=== PATIENT | female | born 1935 | race Asian ===

== ENCOUNTER 2019-10-13 19:45 | Inpatient (IN) | payer MEDICARE, OTHER ==
[~2019-10-13] VITALS: Ht 149.9 cm; Wt 47.3 kg
[2019-10-13] MEDS ORDERED: METF-960 PO (20:09)
[2019-10-13] MEDS ORDERED: QUET25TA PO (20:09)
[2019-10-13] MEDS ORDERED: AMLO2.5T4 PO (20:09)
[2019-10-13] MEDS ORDERED: LISI-662 PO (20:09)
[2019-10-13] MEDS ORDERED: 0.9% SODIUM CHLORIDE 10 ML SYRINGE IVP PRN (20:15)
[2019-10-13 20:46] LABS: HEMATOCRIT 33.1 % (36-46); HEMOGLOBIN 10.8 g/dL (12.0-16.0); MEAN CORPUSCULAR HEMOGLOBIN 30.7 pg (26.0-34.0); MEAN CORPUSCULAR HGB CONC 32.6 G/dL (31.0-37.0); MEAN CORPUSCULAR VOLUME 94 fL (80-100); PLATELET COUNT (AUTO) 125 K/uL (150-450); RED BLOOD CELL COUNT(AUTO) 3.51 MIL/uL (4.00-5.20); RED CELL DISTRIBUTION WIDTH 13.7 % (11.5-14.5)
[2019-10-13] MEDS ORDERED: SODIUM CHLORIDE 0.9% 1,350 ML IV ONE (20:50)
[2019-10-13 21:03] LABS: PROTHROMBIN TIME 10.5 SEC (9.4-11.6)
[2019-10-13 21:09] LABS: LACTIC ACID 4.5 mmol/L (0.4-2.0)
[2019-10-13 21:20] LABS: B-TYPE NATRIURETIC PEPTIDE 300 pg/mL (0-100)
[2019-10-13 21:22] LABS: ALANINE AMINOTRANSFERASE 22 U/L (12-78); ALBUMIN 2.6 g/dL (3.4-5.0); ALKALINE PHOSPHATASE 58 U/L (46-116); ANION GAP 8 mmol/L (8-16); ASPARTATE AMINOTRANSFERASE 19 U/L (15-37); BILIRUBIN,TOTAL 0.4 mg/dL (0.1-1.0); CALCIUM, TOTAL 9.5 mg/dL (8.8-10.5); CARBON DIOXIDE 26 mmol/L (22-29); CHLORIDE 96 mmol/L (98-107); CREATINE KINASE, TOTAL ONLY 556 U/L (26-192); CREATININE 1.07 mg/dL (0.60-1.30); GLOMERULAR FILTR. RATE CALC 49 mL/min (>60); POTASSIUM 3.3 mmol/L (3.5-5.1); SODIUM SERUM 130 mmol/L (136-145); TOTAL PROTEIN, SERUM 7.5 g/dL (6.4-8.2); UREA NITROGEN, BLOOD 27 mg/dL (7-18)
[2019-10-13 21:23] LABS: GLUCOSE,RANDOM 407 mg/dL (70-110)
[2019-10-13 21:38] LABS: APPEARANCE,URINE CLOUDY (CLEAR); BILIRUBIN,URINE NEGATIVE (NEGATIVE); GLUCOSE, URINE (UA) >=1000 mg/dL (NEGATIVE); KETONES,URINE NEGATIVE (NEGATIVE); LEUKOCYTE ESTERASE ,URINE SMALL (NEGATIVE); NITRATE,URINE POSITIVE (NEGATIVE); OCCULT BLOOD,URINE MODERATE (NEGATIVE); PROTEIN,URINE POS 1+ (NEGATIVE)
[2019-10-13] MEDS ORDERED: ACETAMINOPHEN 650 MG/ISO-OSM 65 ML IV ONE (21:45)
[2019-10-13 21:48] LABS: BACTERIA,URINE Many /HPF (None Seen)
[2019-10-13 21:51] LABS: SQUAMOUS EPITHELIAL CELL,UR Few /LPF (None Seen)
[2019-10-13 21:55] LABS: BAND NEUTROPHILS % (MANUAL) 34 % (0-5); LYMPHOCYTES % (MANUAL) 18 % (22-44); MONOCYTES % (MANUAL) 7 % (2-9); SEGMENTED NEUTROPHILS % 41 % (40-70)
[2019-10-13] MEDS ORDERED: ACETAMINOPHEN 325 MG TABLET PO PRN (22:30)
[2019-10-13] MEDS ORDERED: DEXTROSE 50%-WATER 25 GM/50 ML SYRINGE IVP PRN (22:30)
[2019-10-13] MEDS ORDERED: MAGNESIUM HYDROXIDE SUSPENSION 30 ML UDCUP PO PRN (22:30)
[2019-10-13] MEDS ORDERED: IPRATROPIUM BROMIDE 0.5 MG/2.5 ML NEB SOLUTION NEB PRN (22:30)
[2019-10-13] MEDS ORDERED: MORPHINE SULFATE 2 MG/ML SYRINGE IVP PRN (22:30)
[2019-10-13] MEDS ORDERED: ONDANSETRON HCL 4 MG/2 ML VIAL IVP PRN (22:30)
[2019-10-13] MEDS ORDERED: HYDROCODONE/ACETAMINOPHEN 5-325 MG TABLET PO PRN (22:30)
[2019-10-13] MEDS ORDERED: ALBUTEROL SULFATE 2.5 MG/0.5 ML NEB SOLUTION NEB PRN (22:30)
[2019-10-13] MEDS ORDERED: ZOLPIDEM TARTRATE 5 MG TABLET PO PRN (22:30)
[2019-10-13] MEDS ORDERED: BISACODYL 10 MG RECTAL RECTAL SUPPOSITORY PR PRN (22:30)
[2019-10-13 22:37] LABS: INFLUENZA TYPE A NEGATIVE FOR TYPE A (NEGATIVE); INFLUENZA TYPE B NEGATIVE FOR TYPE B (NEGATIVE)
[2019-10-13] MEDS ORDERED: AZITHROMYCIN 500 MG/NS 250 ML IV SCH (23:00)
[2019-10-13 23:20] VITALS: BP 105/53
[2019-10-14] MEDS ORDERED: CefTRIAXone 1 GM/DEXTROSE 50 ML IV SCH
[2019-10-14] MEDS: HEPARIN SODIUM,PORCINE 5,000 UNITS/ML VIAL SQ SCH ×3 (00:29→21:18)
[2019-10-14 04:14] VITALS: BP 121/67
[2019-10-14 07:08] LABS: GLUCOMETER DEV NAME(LOC) 5S.1; GLUCOSE,POINT OF CARE 122 MG/DL (70-110)
[2019-10-14 07:16] VITALS: BP 116/74
[2019-10-14 07:24] LABS: HEMATOCRIT 32.6 % (36-46); HEMOGLOBIN 10.6 g/dL (12.0-16.0); MEAN CORPUSCULAR HEMOGLOBIN 30.5 pg (26.0-34.0); MEAN CORPUSCULAR HGB CONC 32.6 G/dL (31.0-37.0); MEAN CORPUSCULAR VOLUME 94 fL (80-100); PLATELET COUNT (AUTO) 138 K/uL (150-450); RED BLOOD CELL COUNT(AUTO) 3.48 MIL/uL (4.00-5.20); RED CELL DISTRIBUTION WIDTH 13.9 % (11.5-14.5)
[2019-10-14 07:41] LABS: CARBON DIOXIDE 25 mmol/L (22-29); CHLORIDE 102 mmol/L (98-107); POTASSIUM 3.3 mmol/L (3.5-5.1); SODIUM SERUM 136 mmol/L (136-145)
[2019-10-14 07:42] LABS: ALANINE AMINOTRANSFERASE 21 U/L (12-78); ALBUMIN 2.4 g/dL (3.4-5.0); ALKALINE PHOSPHATASE 54 U/L (46-116); ANION GAP 9 mmol/L (8-16); ASPARTATE AMINOTRANSFERASE 19 U/L (15-37); BILIRUBIN,TOTAL 0.6 mg/dL (0.1-1.0); CALCIUM, TOTAL 9.2 mg/dL (8.8-10.5); CREATININE 0.83 mg/dL (0.60-1.30); GLUCOSE,RANDOM 164 mg/dL (70-110); TOTAL PROTEIN, SERUM 7.2 g/dL (6.4-8.2); UREA NITROGEN, BLOOD 21 mg/dL (7-18)
[2019-10-14 07:43] LABS: GLOMERULAR FILTR. RATE CALC > 60 mL/min (>60)
[2019-10-14 07:57] LABS: BAND NEUTROPHILS % (MANUAL) 21 % (0-5); EOSINOPHILS % (MANUAL) 1 % (1-6); LYMPHOCYTES % (MANUAL) 19 % (22-44); MONOCYTES % (MANUAL) 5 % (2-9); SEGMENTED NEUTROPHILS % 54 % (40-70)
[2019-10-14] MEDS: DOCUSATE SODIUM 100 MG CAPSULE PO SCH ×2 (09:00→21:00)
[2019-10-14] MEDS: AmLODIPine BESYLATE 2.5 MG TABLET PO SCH (09:00)
[2019-10-14] MEDS: LISINOPRIL 20 MG TABLET PO SCH (09:00)
[2019-10-14] MEDS: ACETAMINOPHEN 650 MG RECTAL SUPPOSITORY PR PRN ×2 (09:41→13:58)
[2019-10-14] MEDS: DEXTROSE 5%-0.45% SODIUM CHL 1,000 ML IV SCH (09:44)
[2019-10-14 10:54] VITALS: BP 121/57
[2019-10-14] MEDS: POTASSIUM CHL 10 MEQ/WATER 50 ML IV PRN ×3 (12:14→15:27)
[2019-10-14 13:01] LABS: GLUCOMETER DEV NAME(LOC) 5N.1; GLUCOSE,POINT OF CARE 144 MG/DL (70-110)
[2019-10-14] MEDS ORDERED: VANCOMYCIN HCL 1 GM/D5% WATER 200 ML IV ONE (13:45)
[2019-10-14] MEDS ORDERED: SODIUM CHLORIDE 0.9% 250 ML IV ONE (14:48)
[2019-10-14 15:37] VITALS: BP 111/65
[2019-10-14] MEDS: PIPERACILLIN SODIUM/TAZOBACTAM 2.25 GM in DEXTROSE 5%-WATER 50 ML IV SCH ×2 (16:51→23:32)
[2019-10-14 19:38] LABS: GLUCOMETER DEV NAME(LOC) 5S.1; GLUCOSE,POINT OF CARE 129 MG/DL (70-110)
[2019-10-14 20:38] VITALS: BP 107/54
[2019-10-14] MEDS: QUEtiapine FUMARATE 25 MG TABLET PO SCH (21:18)
[2019-10-14 23:38] VITALS: BP 108/52
[2019-10-14] MEDS: AZITHROMYCIN 500 MG/NS 250 ML IV SCH (23:54)
[2019-10-15 00:25] LABS: GLUCOMETER DEV NAME(LOC) 5S.1; GLUCOSE,POINT OF CARE 120 MG/DL (70-110)
[2019-10-15] MEDS: DEXTROSE 5%-0.45% SODIUM CHL 1,000 ML IV SCH ×2 (00:25→14:06)
[2019-10-15] MEDS: PIPERACILLIN SODIUM/TAZOBACTAM 2.25 GM in DEXTROSE 5%-WATER 50 ML IV SCH ×4 (03:59→22:08)
[2019-10-15 05:34] VITALS: BP 110/50
[2019-10-15 06:44] LABS: HEMATOCRIT 29.4 % (36-46); HEMOGLOBIN 9.8 g/dL (12.0-16.0); MEAN CORPUSCULAR HEMOGLOBIN 31.1 pg (26.0-34.0); MEAN CORPUSCULAR HGB CONC 33.2 G/dL (31.0-37.0); MEAN CORPUSCULAR VOLUME 94 fL (80-100); PLATELET COUNT (AUTO) 157 K/uL (150-450); RED BLOOD CELL COUNT(AUTO) 3.14 MIL/uL (4.00-5.20); RED CELL DISTRIBUTION WIDTH 14.1 % (11.5-14.5)
[2019-10-15 07:21] LABS: ALANINE AMINOTRANSFERASE 18 U/L (12-78); ALKALINE PHOSPHATASE 50 U/L (46-116); ANION GAP 11 mmol/L (8-16); ASPARTATE AMINOTRANSFERASE 24 U/L (15-37); BILIRUBIN,TOTAL 0.5 mg/dL (0.1-1.0); CALCIUM, TOTAL 8.7 mg/dL (8.8-10.5); CARBON DIOXIDE 22 mmol/L (22-29); CHLORIDE 107 mmol/L (98-107); CREATININE 0.77 mg/dL (0.60-1.30); GLUCOSE,RANDOM 132 mg/dL (70-110); POTASSIUM 3.4 mmol/L (3.5-5.1); SODIUM SERUM 140 mmol/L (136-145); TOTAL PROTEIN, SERUM 6.2 g/dL (6.4-8.2); UREA NITROGEN, BLOOD 14 mg/dL (7-18)
[2019-10-15 07:25] LABS: GLOMERULAR FILTR. RATE CALC > 60 mL/min (>60)
[2019-10-15 07:43] VITALS: BP 113/64
[2019-10-15] MEDS ORDERED: VANCOMYCIN HCL 750 MG in DEXTROSE 5%-WATER 250 ML IV SCH (08:00)
[2019-10-15] MEDS: VANCOMYCIN HCL 1 GM/D5% WATER 200 ML IV SCH (08:37)
[2019-10-15] MEDS: POTASSIUM CHL 10 MEQ/WATER 50 ML IV PRN ×3 (08:40→14:33)
[2019-10-15 08:51] LABS: BAND NEUTROPHILS % (MANUAL) 20 % (0-5); EOSINOPHILS % (MANUAL) 1 % (1-6); LYMPHOCYTES % (MANUAL) 20 % (22-44); MONOCYTES % (MANUAL) 6 % (2-9); SEGMENTED NEUTROPHILS % 53 % (40-70)
[2019-10-15] MEDS: DOCUSATE SODIUM 100 MG CAPSULE PO SCH ×2 (09:00→22:13)
[2019-10-15] MEDS: HEPARIN SODIUM,PORCINE 5,000 UNITS/ML VIAL SQ SCH ×2 (09:12→22:14)
[2019-10-15 11:19] VITALS: BP 130/63
[2019-10-15] MEDS: LISINOPRIL 20 MG TABLET PO SCH (11:25)
[2019-10-15] MEDS: AmLODIPine BESYLATE 2.5 MG TABLET PO SCH (11:26)
[2019-10-15] MEDS: INSULIN LISPRO 100 UNITS/ML SQ PRN ×2 (12:13→22:30)
[2019-10-15 12:15] LABS: GLUCOMETER DEV NAME(LOC) 5S.1; GLUCOSE,POINT OF CARE 123 MG/DL (70-110)
[2019-10-15 12:28] LABS: GLUCOMETER DEV NAME(LOC) 5S.1; GLUCOSE,POINT OF CARE 141 MG/DL (70-110)
[2019-10-15 15:14] VITALS: BP 145/60
[2019-10-15 17:54] LABS: GLUCOMETER DEV NAME(LOC) 5N.1; GLUCOSE,POINT OF CARE 104 MG/DL (70-110)
[2019-10-15 20:41] VITALS: BP 141/68
[2019-10-15] MEDS: QUEtiapine FUMARATE 25 MG TABLET PO SCH (22:14)
[2019-10-15] MEDS: AZITHROMYCIN 500 MG/NS 250 ML IV SCH (23:33)
[2019-10-15 23:51] VITALS: BP 122/66
[2019-10-16] MEDS: PIPERACILLIN SODIUM/TAZOBACTAM 2.25 GM in DEXTROSE 5%-WATER 50 ML IV SCH ×4 (03:07→21:42)
[2019-10-16 04:32] VITALS: BP 144/68
[2019-10-16] MEDS: DEXTROSE 5%-0.45% SODIUM CHL 1,000 ML IV SCH ×2 (05:00→20:54)
[2019-10-16] MEDS: INSULIN LISPRO 100 UNITS/ML SQ PRN ×4 (05:44→21:41)
[2019-10-16 07:02] LABS: BASOPHILS % (AUTO) 0.7 % (0.0-2.0); EOSINOPHILS % (AUTO) 1.6 % (1.0-6.0); HEMATOCRIT 30.3 % (36-46); LYMPHOCYTES # (AUTO) 0.7 K/uL (1.0-4.8); LYMPHOCYTES % (AUTO) 18.1 % (22.0-44.0); MEAN CORPUSCULAR HEMOGLOBIN 30.8 pg (26.0-34.0); MEAN CORPUSCULAR HGB CONC 33.1 G/dL (31.0-37.0); MEAN CORPUSCULAR VOLUME 93 fL (80-100); MONOCYTES # (AUTO) 0.4 K/uL (0.1-1.0); MONOCYTES % (AUTO) 9.1 % (2.0-9.0); NEUTROPHILS # (AUTO) 2.9 K/uL (1.8-7.7); NEUTROPHILS % (AUTO) 70.5 % (40.0-70.0); PLATELET COUNT (AUTO) 187 K/uL (150-450); RED BLOOD CELL COUNT(AUTO) 3.25 MIL/uL (4.00-5.20); RED CELL DISTRIBUTION WIDTH 14.1 % (11.5-14.5)
[2019-10-16 07:18] VITALS: BP 149/72
[2019-10-16 07:33] LABS: ALANINE AMINOTRANSFERASE 29 U/L (12-78); ALBUMIN 2.1 g/dL (3.4-5.0); ALKALINE PHOSPHATASE 60 U/L (46-116); ANION GAP 11 mmol/L (8-16); ASPARTATE AMINOTRANSFERASE 27 U/L (15-37); BILIRUBIN,TOTAL 0.5 mg/dL (0.1-1.0); CALCIUM, TOTAL 8.5 mg/dL (8.8-10.5); CARBON DIOXIDE 24 mmol/L (22-29); CHLORIDE 105 mmol/L (98-107); CREATININE 0.75 mg/dL (0.60-1.30); GLUCOSE,RANDOM 155 mg/dL (70-110); POTASSIUM 3.5 mmol/L (3.5-5.1); SODIUM SERUM 140 mmol/L (136-145); TOTAL PROTEIN, SERUM 6.8 g/dL (6.4-8.2); UREA NITROGEN, BLOOD 8 mg/dL (7-18); VANCOMYCIN,RANDOM 11.2 mcg/mL (25.0-50.0)
[2019-10-16 07:50] LABS: GLOMERULAR FILTR. RATE CALC > 60 mL/min (>60)
[2019-10-16 09:00] LABS: GLUCOMETER DEV NAME(LOC) 5N.1; GLUCOSE,POINT OF CARE 154 MG/DL (70-110)
[2019-10-16 09:00] LABS: GLUCOMETER DEV NAME(LOC) 5S.1; GLUCOSE,POINT OF CARE 173 MG/DL (70-110)
[2019-10-16] MEDS: VANCOMYCIN HCL 1 GM/D5% WATER 200 ML IV SCH (09:29)
[2019-10-16] MEDS: DOCUSATE SODIUM 100 MG CAPSULE PO SCH ×2 (09:32→21:42)
[2019-10-16] MEDS: AmLODIPine BESYLATE 2.5 MG TABLET PO SCH (09:44)
[2019-10-16] MEDS: LISINOPRIL 20 MG TABLET PO SCH (09:45)
[2019-10-16] MEDS: HEPARIN SODIUM,PORCINE 5,000 UNITS/ML VIAL SQ SCH ×2 (09:46→21:42)
[2019-10-16 11:30] VITALS: BP 144/82
[2019-10-16 15:01] LABS: GLUCOMETER DEV NAME(LOC) 5N.1; GLUCOSE,POINT OF CARE 187 MG/DL (70-110)
[2019-10-16 15:21] VITALS: BP 136/76
[2019-10-16 18:40] LABS: GLUCOMETER DEV NAME(LOC) 5S.1; GLUCOSE,POINT OF CARE 201 MG/DL (70-110)
[2019-10-16 20:19] VITALS: BP 155/76
[2019-10-16] MEDS: VANCOMYCIN HCL 750 MG in DEXTROSE 5%-WATER 250 ML IV SCH (20:53)
[2019-10-16] MEDS: QUEtiapine FUMARATE 25 MG TABLET PO SCH (21:42)
[2019-10-16] MEDS: AZITHROMYCIN 500 MG/NS 250 ML IV SCH (23:47)
[2019-10-17 00:05] VITALS: BP 134/70
[2019-10-17 03:02] LABS: GLUCOMETER DEV NAME(LOC) 5S.1; GLUCOSE,POINT OF CARE 173 MG/DL (70-110)
[2019-10-17] MEDS: PIPERACILLIN SODIUM/TAZOBACTAM 2.25 GM in DEXTROSE 5%-WATER 50 ML IV SCH ×2 (03:16→09:14)
[2019-10-17 05:07] VITALS: BP 146/77
[2019-10-17 05:58] LABS: GLUCOMETER DEV NAME(LOC) 5N.1; GLUCOSE,POINT OF CARE 170 MG/DL (70-110)
[2019-10-17] MEDS: INSULIN LISPRO 100 UNITS/ML SQ PRN ×2 (06:23→11:33)
[2019-10-17 07:09] LABS: BASOPHILS % (AUTO) 0.3 % (0.0-2.0); EOSINOPHILS % (AUTO) 1.3 % (1.0-6.0); HEMATOCRIT 30.5 % (36-46); HEMOGLOBIN 9.9 g/dL (12.0-16.0); LYMPHOCYTES # (AUTO) 0.8 K/uL (1.0-4.8); LYMPHOCYTES % (AUTO) 18.4 % (22.0-44.0); MEAN CORPUSCULAR HEMOGLOBIN 30.1 pg (26.0-34.0); MEAN CORPUSCULAR HGB CONC 32.5 G/dL (31.0-37.0); MEAN CORPUSCULAR VOLUME 93 fL (80-100); MONOCYTES # (AUTO) 0.3 K/uL (0.1-1.0); MONOCYTES % (AUTO) 7.1 % (2.0-9.0); NEUTROPHILS # (AUTO) 3.3 K/uL (1.8-7.7); NEUTROPHILS % (AUTO) 72.9 % (40.0-70.0); PLATELET COUNT (AUTO) 207 K/uL (150-450); RED CELL DISTRIBUTION WIDTH 13.8 % (11.5-14.5)
[2019-10-17 07:29] VITALS: BP 153/70
[2019-10-17 07:31] LABS: ALANINE AMINOTRANSFERASE 29 U/L (12-78); ALBUMIN 2.1 g/dL (3.4-5.0); ALKALINE PHOSPHATASE 74 U/L (46-116); ANION GAP 11 mmol/L (8-16); ASPARTATE AMINOTRANSFERASE 30 U/L (15-37); BILIRUBIN,TOTAL 0.5 mg/dL (0.1-1.0); CALCIUM, TOTAL 8.7 mg/dL (8.8-10.5); CARBON DIOXIDE 26 mmol/L (22-29); CHLORIDE 103 mmol/L (98-107); CREATININE 0.74 mg/dL (0.60-1.30); GLUCOSE,RANDOM 176 mg/dL (70-110); POTASSIUM 3.2 mmol/L (3.5-5.1); SODIUM SERUM 140 mmol/L (136-145); UREA NITROGEN, BLOOD 5 mg/dL (7-18)
[2019-10-17 07:48] LABS: GLOMERULAR FILTR. RATE CALC > 60 mL/min (>60)
[2019-10-17] MEDS: VANCOMYCIN HCL 750 MG in DEXTROSE 5%-WATER 250 ML IV SCH (09:12)
[2019-10-17] MEDS ORDERED: SODIUM CHLORIDE 0.9% 250 ML IV ONE (09:19)
[2019-10-17] MEDS: LISINOPRIL 20 MG TABLET PO SCH (09:27)
[2019-10-17] MEDS: AmLODIPine BESYLATE 2.5 MG TABLET PO SCH (09:27)
[2019-10-17] MEDS: DOCUSATE SODIUM 100 MG CAPSULE PO SCH (09:28)
[2019-10-17] MEDS: POTASSIUM CHLORIDE 20 MEQ ER TABLET PO PRN ×2 (09:29→17:11)
[2019-10-17] MEDS: HEPARIN SODIUM,PORCINE 5,000 UNITS/ML VIAL SQ SCH (09:31)
[2019-10-17] MEDS ORDERED: LEVO250T75 PO (10:37)
[2019-10-17 11:13] VITALS: BP 137/77
[2019-10-17 15:45] VITALS: BP 159/76
[2019-10-18 04:01] LABS: GLUCOMETER DEV NAME(LOC) 5S.1; GLUCOSE,POINT OF CARE 208 MG/DL (70-110)
[2019-10-18 18:52] LABS: LEGIONELLA PNEUMO AG URINE Negative (Negative); ORGANISM ID Not indicated.; S PNEUMO SOURCE Urine; STREP PNEUMONIAE AG URINE Positive (Negative); STREP.PNEUMO BODY FLUID CULT. Not indicated.
== END 2019-10-17 18:05 | DRG 871 ==
LOC: EMS 19:45 → 5N 21:30
PROVIDERS: ADMIT Hospitalist; ATTEND Hospitalist
DX: A41.9 Sepsis, unspecified organism (principal); J96.91 Respiratory failure, unspecified with hypoxia; E43 Unspecified severe protein-calorie malnutrition; J69.0 Pneumonitis due to inhalation of food and vomit; G92 Toxic encephalopathy; E87.2 Acidosis; N39.0 Urinary tract infection, site not specified; E11.9 Type 2 diabetes mellitus without complications; I10 Essential (primary) hypertension; E87.6 Hypokalemia; F03.90 Unspecified dementia, unspecified severity, without behavioral disturbance, psychotic disturbance, mood disturbance, and anxiety; R62.7 Adult failure to thrive; F01.50 Vascular dementia, unspecified severity, without behavioral disturbance, psychotic disturbance, mood disturbance, and anxiety; B96.20 Unspecified Escherichia coli [E. coli] as the cause of diseases classified elsewhere; Z66 Do not resuscitate; Z95.2 Presence of prosthetic heart valve; Z95.1 Presence of aortocoronary bypass graft; Z68.21 Body mass index [BMI] 21.0-21.9, adult; Z86.73 Personal history of transient ischemic attack (TIA), and cerebral infarction without residual deficits
CPT/HCPCS: 51702; 70450; 71250; 83605; 84132; 84145; 87040; 87086; 87449; 87804; 87899; 92526; 92610; 93005; J0131; J0456; J0696; J1644; J2543; J3370; J3480; J7050; J7060

== ENCOUNTER 2019-11-04 06:29 | Emergency (ER) | payer MEDICARE, OTHER ==
[~2019-11-04] VITALS: Ht 149.9 cm; Wt 52.2 kg
[~2019-11-04 06:29] MED LIST: AMLO2.5T4 PO; LEVO250T75 PO; LISI-662 PO; METF-960 PO; QUET25TA PO
[2019-11-04] MEDS ORDERED: AMLO2.5T4 PO (07:01)
[2019-11-04] MEDS ORDERED: INSU100V SQ (07:01)
[2019-11-04] MEDS ORDERED: MOM30 PO (07:01)
[2019-11-04] MEDS ORDERED: QUET25TA PO (07:01)
[2019-11-04] MEDS ORDERED: HYDR-3290 PO (07:09)
[2019-11-04 08:04] LABS: AMPHET/METH SCREEN,URINE NEGATIVE (NEGATIVE); BARBITURATE SCREEN, URINE NEGATIVE (NEGATIVE); BENZODIAZEPINES SCREEN,URINE NEGATIVE (NEGATIVE); CANNABINOID SCREEN,URINE NEGATIVE (NEGATIVE); COCAINE SCREEN,URINE NEGATIVE (NEGATIVE); METHADONE SCREEN, URINE NEGATIVE (NEGATIVE); OPIATE SCREEN,URINE NEGATIVE (NEGATIVE); PHENCYCLIDINE SCREEN,URINE NEGATIVE (NEGATIVE)
[2019-11-04 08:18] LABS: APPEARANCE,URINE CLEAR (CLEAR); BILIRUBIN,URINE NEGATIVE (NEGATIVE); GLUCOSE, URINE (UA) NEGATIVE (NEGATIVE); KETONES,URINE NEGATIVE (NEGATIVE); LEUKOCYTE ESTERASE ,URINE TRACE (NEGATIVE); NITRATE,URINE NEGATIVE (NEGATIVE); OCCULT BLOOD,URINE NEGATIVE (NEGATIVE); PH,URINE 6.5 (5.0-8.0); PROTEIN,URINE NEGATIVE (NEGATIVE); UROBILINOGEN,URINE 0.2 mg/dL (<=1.0)
[2019-11-04 08:22] LABS: BACTERIA,URINE None Seen /HPF (None Seen); RBC,URINE None Seen /HPF (0-2); SQUAMOUS EPITHELIAL CELL,UR Rare /LPF (None Seen); WBC,URINE 0-2 /HPF (0-5)
[2019-11-04 08:49] VITALS: BP 145/78
== END 2019-11-04 08:56 | disposition home or self-care (01) ==
LOC: EMS 06:29
DX: Z04.3 Encounter for examination and observation following other accident (principal); F03.90 Unspecified dementia, unspecified severity, without behavioral disturbance, psychotic disturbance, mood disturbance, and anxiety; I10 Essential (primary) hypertension; E11.9 Type 2 diabetes mellitus without complications; Z79.84 Long term (current) use of oral hypoglycemic drugs; Z79.899 Other long term (current) drug therapy; W18.39XA Other fall on same level, initial encounter; Y93.89 Activity, other specified; Y92.89 Other specified places as the place of occurrence of the external cause; Y99.8 Other external cause status
CPT/HCPCS: 93005